=== PATIENT | female | born 1975 | race Asian ===

== ENCOUNTER → 2024-04-07 08:30 | Outpatient (REF) | payer OTHER, SELFPAY | LOC: WDC 08:30 | PROVIDERS: ATTENDING PHYSICIAN Family Medicine | DX: Z12.31 Encounter for screening mammogram for malignant neoplasm of breast (principal) | CPT/HCPCS: 77063; 77067 ==

== ENCOUNTER 2024-12-18 19:34 | Emergency (ER) | payer OTHER, SELFPAY ==
[2024-12-18 19:36] VITALS: BP 198/114
[2024-12-18 19:55] LABS: % Basophils 0.6 % (0-2); % Eosinophils 2.1 % (0-6); % Immature Granulocytes 0.3 % (0-0.5); % Lymphocytes 27.1 % (20.5-51.1); % Monocytes 6.5 % (1.7-9.3); % Neutrophils 63.4 % (42.2-75.2); Absolute Eosinophils 0.2 10^3/uL (0-0.7); Absolute Lymphocytes 1.9 10^3/uL (1.2-3.4); Absolute Monocytes 0.5 10^3/uL (0.1-0.6); Absolute Neutrophils 4.5 10^3/uL (1.4-6.5); Hematocrit 36.5 % (37.0-47.0); Hemoglobin 11.7 g/dL (12.0-16.0); Mean Corp Hgb Conc. 32.1 g/dL (33.0-37.0); Mean Corpuscular Hgb 23.4 pg (27.0-31.0); Mean Corpuscular Volume 73.1 fL (81.0-99.0); Mean Platelet Volume 9.3 fL (7.4-10.4); Nucleated Red Blood Cells % 0 %; Platelet Count 263 10^3/uL (130-400); Red Blood Cell Count 4.99 10^6/uL (4.20-5.40); Red Cell Dist. Width 14.9 % (11.5-14.5)
[2024-12-18 20:08] LABS: ALT (SGPT) 22 U/L (0-35); AST (SGOT) 24 U/L (14-36); Albumin 3.8 g/dl (3.5-5.0); Alkaline Phosphatase 66 U/L (38-126); Blood Urea Nitrogen 19 mg/dl (7-17); Calcium 8.9 mg/dl (8.4-10.2); Carbon Dioxide 27 mmol/L (22-30); Chloride 107 mmol/L (98-107); Glucose 182 mg/dl (70-99); Sodium 140 mmol/L (135-145); Total Bilirubin 0.4 mg/dl (0.2-1.3); Total Protein 6.7 g/dl (6.3-8.2); eGFR > 60.00
[2024-12-18 20:22] LABS: Troponin I < 0.012 ng/ml
[2024-12-18 22:00] LABS: D-Dimer < 0.27 ug/mlFEU (0.00-0.50)
--- NOTE | 2024-12-18 22:24 | ED.GENMED ---
History of Present Illness
General
Chief Complaint: Chest Pain
Source: patient and spouse
Exam Limitations: none
Time Seen by Provider: 12/18/24 21:06
Nursing documentation reviewed up to this point in time: agreed with
History of Present Illness
History of Present Illness:
49-year-old female with no reported chronic medical issues presents for evaluation of chest pain. Patient reports vague pressure sensation in the left chest that has been waxing and waning over the past 24 hours. Started after she woke up from a
nap yesterday late morning/early afternoon. No exertional component, no triggering relieving factors noted. She denies any associated shortness of breath. She denies any nausea, vomiting, abdominal pain. She denies any dizziness. She denies
having had similar symptoms in the past. She denies any known history of heart disease. She does note that she was sick with a cold a few weeks ago and was told that her blood pressure was high when she was evaluated for it. Blood pressure was
notably high today�denies history of high blood pressure.
Past History
Past History
ED Past Medical History: Negative Asthma, HTN, Hypercholesterolemia or NIDDM
ED Past Surgical History:
Social History
Tobacco: Non-smoker
Alcohol: None
Personal:
Living: with family
Review of Systems
Review of Systems
All Other Systems: ROS reviewed and negative except as documented in HPI and ROS
Constitutional: Denies fever
Respiratory: Denies cough or trouble breathing
Cardiac: Reports chest pain
ABD/GI: Denies abdominal pain, nausea or vomiting
: Denies flank pain
Musculoskeletal: Denies neck pain or back pain
Neurological: Denies dizzy or headache
Phy Exam
Physical Exam
Physical Exam:
General: Awake, alert, oriented x3; no acute distress
Head: Normocephalic, atraumatic
Eyes: Conjunctiva normal, sclera anicteric
Throat: Airway intact, handling secretions
Neck: Trachea midline, no JVD
Lungs: Clear to auscultation bilaterally, no wheezing, rales, rhonchi
Heart: Regular rate and rhythm, no murmurs, gallops, or rubs
Abd: Soft, non distended, nontender
Neuro: No gross deficits
Extremities: Warm and well-perfused
Scores
Heart Failure Risk
Heart Failure Risk Score: Not Applicable
Heart Score for Chest Pain Patients
STEMI patient?: No
History: Slightly or Non-Suspicious
ECG: Nonspecific Repolarization
Age: >45 - <65 years
Risk Factors: 1 or 2 Risk Factors
Troponin: </= Normal Limit
Heart Score for Chest Pain Patients: 3
Heart Score Risk: 2.5% MACE over next 6 weeks
Withdrawal Assessment of Alcohol
Withdrawal Assessment Completed?: Not applicable
Course
Orders/Labs/Results
Orders:
Orders
12/18/24 19:40
Electrocardiogram (*1) Urgent
Reason for Study: Chest Pain
EKG- Treatment ONCE
12/18/24 19:50
Complete Blood Count/With Diff Urgent
Comprehensive Metabolic Panel Urgent
Troponin I Urgent
12/18/24 21:22
CR Chest - 2 Views Urgent
Comment:
Reason For Exam: chest pain
12/18/24 21:23
Electrocardiogram (*1) Urgent
Reason for Study: Chest Pain
EKG- Treatment ONCE
12/18/24 21:42
D-Dimer Urgent
12/18/24 22:33
Troponin I Urgent
12/18/24 23:36
Labetalol HCl [Trandate] 10 mg IV NOW STA
12/19/24 00:17
Labetalol HCl [Trandate] 10 mg IV NOW STA
Abnormal Lab Results
12/18/24
19:50
Hgb 11.7 L g/dL
(12.0-16.0)
Hct 36.5 L %
(37.0-47.0)
MCV 73.1 L fL
(81.0-99.0)
MCH 23.4 L pg
(27.0-31.0)
MCHC 32.1 L g/dL
(33.0-37.0)
RDW 14.9 H %
(11.5-14.5)
BUN 19 H mg/dl
(7-17)
Glucose 182 H mg/dl
(70-99)
12/18/24 19:50
12/18/24 19:50
Vital Signs
Initial and Last Documented VS:
Initial Vital Signs
Pulse Resp BP Pulse Ox
90 16 198/114 98
12/18/24 19:36 12/18/24 19:36 12/18/24 19:36 12/18/24 19:36
Last Documented Vital Signs
Temp Pulse Resp BP Pulse Ox
36.6 C 75 10 174/93 98
12/18/24 23:35 12/19/24 00:30 12/19/24 00:30 12/19/24 00:30 12/19/24 00:30
MDM/Problems Addressed
Differential Diagnosis Includes:
GERD, costochondritis, angina/ACS, PE, pneumothorax, pneumonia
MDM/Problems Addressed:
49-year-old female presents for evaluation of chest pain left-sided started yesterday after waking up from a nap and was constant most of the day yesterday but waxing waning today. No exertional component. She is markedly hypertensive in triage
but otherwise normal vitals. Physical exam as above. Her EKG shows some lateral T wave abnormalities no prior to compare. She had lab work sent in triage including a CBC which shows marginal anemia on likely of acute clinical significance. CMP
no clinically significant abnormalities although incidentally has random glucose 182. No history of diabetes. Her initial troponin is undetectable. Will trend her troponin. Will check serial EKGs. Check chest x-ray and D-dimer. Reassess after
the above.
D-dimer negative. Chest x-ray reviewed by me shows no acute disease. Repeat blood pressure improving but not yet normalized. Continue to monitor.
Repeat troponin undetectable. No change in serial EKGs. She remains markedly hypertensive�initial improvement but then blood pressure spiked up again. Will treat with IV labetalol.
Blood pressure improved with labetalol. Stable for discharge�had a long discussion with the patient reviewed EKG, blood pressure also discussed that her blood sugar was high today (this was nonfasting and she had pizza and cannoli shortly before
coming to the ER). Will start patient on lisinopril and have her follow-up with her primary care physician�we spoke about monitoring her blood pressure in the meantime. Will refer to cardiology for outpatient follow-up as well. She feels very
comfortable with this plan. We spoke about return precautions and all questions were answered.
Acute Exacerbation and/or Progression of Chronic Illness:
Acutely hypertensive managed with labetalol
Acute Exacerbation and/or Progression of Chronic Illness: HTN
*Radiology
Radiology exam reviewed: preliminary read by ED provider
*Pulse Oximetry
Patient hypoxic: no
*EKG
Interpreted by ED Provider?: Yes
Heart Rate: 81
Rate: normal
Rhythm: sinus
[place]: normal axis
Interval: normal interval
QRS Pattern: left vent hypertrophy
Ischemia: T-wave inversion
*Critical Care Note
Total Time (30-74mins, 75-104mins- exclusive of procedures): Not Applicable
Data Reviewed
Review of Other/Old Records Reveals: Labs and Records
Source: patient, spouse and family
ED Attending Note
-
Portions of this chart may have been created with voice recognition software.� Occasional wrong word or��sound alike� substitutions may have occurred due to the inherent limitations of voice recognition software.
Discharge Plan
Departure
Patient Disposition: Home (Routine Discharge)
Date of Disposition: 12/19/24
Time of Disposition: 00:34
Patient with high blood pressure during this ER visit?: Yes
Discharge Problem:
Chest pain, Hypertension, Hyperglycemia
Instructions: Chest Pain CBC Follow Up
Prescriptions:
New
lisinopril 5 mg tablet
5 mg PO DAILY Qty: 30 0RF
No Action
multivitamin Tablet
1 tab PO DAILY
Referrals:
Brent Nolen MD [Active] - Call in 1-3 days for appt (Cardiology)
Aurora Hernandez MD [Family Provider] - Follow up in 5-7 days
Activity Restrictions/Additional Instructions:
Thank you for visiting the Emergency Department at [facility].
1. Please schedule a follow up appointment as directed. Call first thing tomorrow morning to make an appointment.
2. If indicated, please take your medications as instructed and indicated on discharge paperwork.
3. If any of your symptoms do not improve, or persist, or become more severe within 6-12 hours, please return to the emergency department for further care.
4. Please return to the emergency department if you develop a headache, neck pain/stiffness, fever greater than 100.4F, chest pain, shortness of breath, persistent nausea, vomiting, slurred speech, difficulty walking, numbness/tingling, weakness,
signs of infection or any other symptoms that are worrisome to you.
Please call [phone] if you have any questions.
Interventions
Interventions:
*Risk Screen - Suicide Last Done: 12/18/24 19:36
*General Assessment Last Done: 12/18/24 19:36
*Neglect/Abuse Screening Last Done: 12/18/24 19:36
*ED- Fall Risk Assessment Last Done: 12/18/24 23:36
*ED COVID-19 Vaccine History Last Done: 12/18/24 23:36
ED- Cardiac Assessment Last Done: 12/18/24 21:35
Discharge Date and Time
Print Language: SLOVENIAN
[2024-12-18 22:55] VITALS: BP 170/104
[2024-12-18 23:03] LABS: Troponin I < 0.012 ng/ml
[2024-12-18 23:35] VITALS: BP 206/98; BMI 35.2
[2024-12-18] MEDS: TRANDATE 10 MG IV (23:58)
[2024-12-19 00:15] VITALS: BP 206/105
[2024-12-19 00:20] VITALS: BP 194/98
[2024-12-19] MEDS: TRANDATE 10 MG IV (00:23)
[2024-12-19 00:30] VITALS: BP 174/93
== END 2024-12-19 00:56 | disposition home or self-care (01) ==
LOC: EMR 19:34
PROVIDERS: EMERGENCY PHYSICIAN Emergency Medicine; FAMILY PHYSICIAN Family Medicine
DX: R07.89 Other chest pain (principal); I10 Essential (primary) hypertension; R73.9 Hyperglycemia, unspecified; D64.9 Anemia, unspecified
CPT/HCPCS: 99284; 96374; 96376; 71046; 80053; 84484; 85025; 85379; 93005

== ENCOUNTER → 2025-01-05 08:20 | Outpatient (REF) | payer OTHER, SELFPAY | LOC: RCS 08:20 | PROVIDERS: ATTENDING PHYSICIAN Internal Medicine Cardiovascular Disease; FAMILY PHYSICIAN Family Medicine | DX: I10 Essential (primary) hypertension (principal); R07.2 Precordial pain | CPT/HCPCS: 93306 ==

== ENCOUNTER → 2025-04-14 10:50 | Outpatient (REF) | payer OTHER, SELFPAY | LOC: HWRCS 10:50 | PROVIDERS: ATTENDING PHYSICIAN Internal Medicine Cardiovascular Disease; FAMILY PHYSICIAN Internal Medicine | DX: R07.2 Precordial pain (principal); I10 Essential (primary) hypertension | CPT/HCPCS: 78452; 93017; A9500 ==

== ENCOUNTER → 2025-04-17 18:44 | Outpatient (REF) | payer OTHER, SELFPAY | LOC: WDC 18:44 | PROVIDERS: ATTENDING PHYSICIAN Internal Medicine | DX: Z12.31 Encounter for screening mammogram for malignant neoplasm of breast (principal) | CPT/HCPCS: 77063; 77067 ==